=== PATIENT | female | born 1955 | race Two or more races ===

== ENCOUNTER → 2018-10-08 06:54 | Outpatient (CLI) | payer OTHER | END | disposition home or self-care (01) | LOC: LAB 06:54 | DX: I10 Essential (primary) hypertension (principal); D72.89 Other specified disorders of white blood cells; E04.2 Nontoxic multinodular goiter; D50.8 Other iron deficiency anemias; D51.8 Other vitamin B12 deficiency anemias; D51.1 Vitamin B12 deficiency anemia due to selective vitamin B12 malabsorption with proteinuria; D51.0 Vitamin B12 deficiency anemia due to intrinsic factor deficiency; E03.8 Other specified hypothyroidism; E06.3 Autoimmune thyroiditis; R97.0 Elevated carcinoembryonic antigen [CEA] ==

== ENCOUNTER → 2019-02-11 06:36 | Outpatient (CLI) | payer OTHER | END | disposition home or self-care (01) | LOC: LAB 06:36 | DX: D72.818 Other decreased white blood cell count (principal); I10 Essential (primary) hypertension; E04.2 Nontoxic multinodular goiter; D50.8 Other iron deficiency anemias; D51.8 Other vitamin B12 deficiency anemias; R97.0 Elevated carcinoembryonic antigen [CEA]; E04.1 Nontoxic single thyroid nodule ==

== ENCOUNTER 2019-05-21 06:31 | Outpatient (CLI) | payer OTHER | END 2019-05-21 06:44 | disposition home or self-care (01) | LOC: LAB 06:31 | DX: D51.8 Other vitamin B12 deficiency anemias (principal); D55.1 Anemia due to other disorders of glutathione metabolism ==

== ENCOUNTER → 2019-06-17 07:42 | Outpatient (CLI) | payer OTHER | END | disposition home or self-care (01) | LOC: LAB 07:42 | DX: D50.8 Other iron deficiency anemias (principal); D72.818 Other decreased white blood cell count; I10 Essential (primary) hypertension; E04.2 Nontoxic multinodular goiter; N39.0 Urinary tract infection, site not specified; D51.8 Other vitamin B12 deficiency anemias; D51.1 Vitamin B12 deficiency anemia due to selective vitamin B12 malabsorption with proteinuria; D51.0 Vitamin B12 deficiency anemia due to intrinsic factor deficiency; R97.0 Elevated carcinoembryonic antigen [CEA]; E11.9 Type 2 diabetes mellitus without complications; E78.2 Mixed hyperlipidemia ==

== ENCOUNTER → 2020-01-21 06:18 | Outpatient (CLI) | payer OTHER | END | disposition home or self-care (01) | LOC: LAB 06:18 | PROVIDERS: ATTEND Internal Medicine Hematology & Oncology | DX: D50.8 Other iron deficiency anemias (principal); I10 Essential (primary) hypertension; R97.0 Elevated carcinoembryonic antigen [CEA]; R97.8 Other abnormal tumor markers; D72.818 Other decreased white blood cell count; E04.2 Nontoxic multinodular goiter; B96.81 Helicobacter pylori [H. pylori] as the cause of diseases classified elsewhere; Z86.010 Personal history of colon polyps; R73.09 Other abnormal glucose; E53.8 Deficiency of other specified B group vitamins; E78.49 Other hyperlipidemia; N95.1 Menopausal and female climacteric states; Z85.89 Personal history of malignant neoplasm of other organs and systems ==